=== PATIENT | female | born 1990 | race Caucasian/White ===

== ENCOUNTER 2018-01-05 09:20 | Day surgery (SDC) | payer OTHER ==
[~2018-01-05] VITALS: Ht 162.6 cm; Wt 77.1 kg
== END 2018-01-06 19:24 | disposition home or self-care (01) ==
LOC: CIR.AMB 09:20 → O/R 18:12 → CIR.AMB 18:12 → SURG 18:12 → CIR.AMB 01-06 19:24 → SURG 01-06 19:31 → O/R 01-06 19:31
DX: E66.01 Morbid (severe) obesity due to excess calories (principal); Z98.84 Bariatric surgery status; E65 Localized adiposity